=== PATIENT | male | born 1965 | race Caucasian/White ===

== ENCOUNTER 2020-10-07 08:50 | Emergency (ER) | payer BC ==
[2020-10-07 09:05] VITALS: RESP 18
[2020-10-07 09:52] LABS: Appearance,Urine Clear (Clear); Bilirubin,Urine Negative (Negative); Blood,Urine Negative (Negative); Color,Urine Light Yellow; Glucose,Urine (UA) Negative (Negative); Ketones,Urine Negative (Negative); Leukocyte Esterase,Urine Small (Negative); Mucus,Urine Rare /hpf; Nitrite,Urine Negative (Negative); PH, Urine 5.5 (5.0-8.0); Protein,Urine Negative (Negative); RBC,Urine 1 /hpf (0-5); Specific Gravity,Urine 1.015 (1.001-1.035); Squamous Epithelial Cell,Urine <1 /hpf (0-4); Urobilinogen,Urine <2.0 mg/dL (<2.0); WBC,Urine 3 /hpf (0-5)
--- NOTE | 2020-10-07 10:32 | ED ---
Male Urogenital HPI - General Chief complaint: Urogenital Stated complaint: Groin Pain Time Seen by Provider: 10/07/20 09:14 Source: patient, RN notes reviewed Mode of arrival: ambulatory Limitations: no limitations - History of Present Illness Initial comments: This is a 55-year-old male with a benign past medical history who states he started developing right testicular pain this morning. He denies any dysuria hematuria fevers chills nausea vomiting sweats no prior history of any trauma that he is aware of no exposures to STDs. He does state he sits a lot in his job. No prior history kidney stones. He states he has some low back pain is been going on for months since the patient then began uses a lot of computer. MD Complaint: testicle pain - Related Data Home Medications Medication Instructions Recorded Confirmed Phentermine HCl [Adipex-P] 37.5 mg PO DAILY 10/07/20 10/07/20 Rivaroxaban [Xarelto] 20 mg PO DAILY 10/07/20 10/07/20 metFORMIN HCL [Glucophage] 1,000 mg PO DAILY 10/07/20 10/07/20 Previous Rx's Medication Instructions Recorded Ibuprofen 800 mg PO Q6HR PRN #20 tablet 10/07/20 Levofloxacin [Levaquin] 500 mg PO DAILY 1 Days #10 tab 10/07/20 Allergies Allergy/AdvReac Type Severity Reaction Status Date / Time No Known Allergies Allergy Verified 10/07/20 09:55 Review of Systems ROS Statement: Those systems with pertinent positive or pertinent negative responses have been documented in the HPI. ROS Other: All systems not noted in ROS Statement are negative. Past Medical History Past Medical History: No Reported History History of Any Multi-Drug Resistant Organisms: None Reported Past Surgical History: No Surgical Hx Reported, Orthopedic Surgery Past Psychological History: No Psychological Hx Reported Smoking Status: Never smoker Past Alcohol Use History: Occasional Past Drug Use History: None Reported General Exam - General Exam Comments Initial Comments: This is a well-developed well-nourished awake alert oriented times 3 male Limitations: no limitations General appearance: alert, in no apparent distress Head exam: Present: atraumatic, normocephalic, normal inspection Eye exam: Present: normal appearance, PERRL, EOMI. Absent: scleral icterus, conjunctival injection, periorbital swelling ENT exam: Present: normal exam, mucous membranes moist Neck exam: Present: normal inspection. Absent: tenderness, meningismus, lymphadenopathy Respiratory exam: Present: normal lung sounds bilaterally. Absent: respiratory distress, wheezes, rales, rhonchi, stridor Cardiovascular Exam: Present: regular rate, normal rhythm, normal heart sounds. Absent: systolic murmur, diastolic murmur, rubs, gallop, clicks GI/Abdominal exam: Present: soft, normal bowel sounds. Absent: distended, tenderness, guarding, rebound, rigid, bruit, pulsatile mass Rectal exam: Present: deferred exam: Present: normal inspection, testicular tenderness ( tenderness on the right no masses the lie appears to be normal) Extremities exam: Present: normal inspection, full ROM, normal capillary refill. Absent: tenderness, pedal edema, joint swelling, calf tenderness Back exam: Present: normal inspection Neurological exam: Present: alert, oriented X3, CN II-XII intact Psychiatric exam: Present: normal affect, normal mood Skin exam: Present: warm, dry, intact, normal color. Absent: rash Course Vital Signs 10/07/20 09:03 Pulse Rate 68 Respiratory 18 Rate Blood Pressure 142/88 O2 Sat by Pulse 96 Oximetry Medical Decision Making - Medical Decision Making I did discuss findings with the patient UA and ultrasound. Be within normal limits. Clinically the patient does have evidence of orchitis. Patient will be placed on a short course of anti-inflammatories as well as antibiotics. - Lab Data Lab Results 10/07/20 Range/Units 09:40 Urine Color Light Yellow Urine Appearance Clear (Clear) Urine pH 5.5 (5.0-8.0) Ur Specific [place] 1.015 (1.001-1.035) Urine Protein Negative (Negative) Urine Glucose (UA) Negative (Negative) Urine Ketones Negative (Negative) Urine Blood Negative (Negative) Urine Nitrite Negative (Negative) Urine Bilirubin Negative (Negative) Urine Urobilinogen <2.0 (<2.0) mg/dL Ur Leukocyte Esterase Small H (Negative) Urine RBC 1 (0-5) /hpf Urine WBC 3 (0-5) /hpf Ur Squamous Epith Cells <1 (0-4) /hpf Urine Mucus Rare H (None) /hpf - Radiology Data Radiology results: report reviewed (I did review the imaging and report no evidence of acute findings.), image reviewed Disposition Clinical Impression: Orchitis of right testicle Disposition: HOME SELF-CARE Condition: Good Instructions (If sedation given, give patient instructions): Orchitis (ED), Testicle Pain (ED) Additional Instructions: Medication prescriptions sent to your preferred pharmacy Prescriptions: Ibuprofen 800 mg PO Q6HR PRN #20 tablet PRN Reason: Pain Levofloxacin [Levaquin] 500 mg PO DAILY 1 Days #10 tab Is patient prescribed a controlled substance at d/c from ED?: No Referrals: Rikki Church MD [Primary Care Provider] - 1-2 days
[2020-10-07] MEDS ORDERED: IBUPROFEN 800 MG TAB PO STA (10:38)
--- NOTE | 2020-10-07 11:02 | US ---
EXAMINATION TYPE: US scrotum with doppler. Grayscale and color Doppler Duplex imaging performed of faye clark scrotum. DATE OF EXAM: 10/07/2020 COMPARISON: NONE CLINICAL HISTORY: Right testicular pain. EXAM MEASUREMENTS: TESTICLES: Right Testicle: 4.2 x 2.1 x 2.4 cm Left Testicle: 4.2 x 2.5 x 2.4 cm EPIDIDYMIS HEAD: Right Epididymis: 1.0 cm Left Epididymis: 0.9 cm Doppler performed to assess for testicular vascularity; good bilateral color flow and arterial and ve nous spectral waveforms are seen. There is no evidence of testicular torsion. Minimally heterogenous appearance of the testicles bilaterally, right greater than left, without foca l lesion or microlithiasis. No asymmetric scrotal thickening is seen. Presence of hydroceles: no Presence of varicoceles: no IMPRESSION: 1. No evidence of testicular torsion. 2. No evidence of epididymitis or orchitis. 3. No hydrocele or varicocele. 4. No discrete testicular mass.
[2020-10-07 11:24] VITALS: BP 130/95; PULSE 85; TEMP 98.1
== END 2020-10-07 11:24 | disposition home or self-care (01) ==
LOC: EC 08:50
DX: N45.2 Orchitis (principal); M54.5 Low back pain
CPT/HCPCS: 76870; 81001; 93975; 99284